=== PATIENT | male | born 1955 | race Caucasian/White ===

== ENCOUNTER → 2020-04-10 | Day surgery (SDC) | payer BC ==
[2020-04-07 15:56] VITALS: BMI 26.9
[~2020-04-10] MED LIST: LACTATED RINGERS 1,000 ML IV SCH; LIDOCAINE 1% (10MG/ML) FOR IV START INTRADERMA PRN; PROPOFOL 10 MG/ML 20 ML VIAL IV ONE
[2020-04-10 10:33] VITALS: TEMP 97.8
--- NOTE | 2020-04-10 10:58 | P.GSHP ---
History of Present Illness H&P Date: 04/10/20 Chief Complaint: Screening colonoscopy This a 65-year-old male who presents today for screening colonoscopy. Patient denies any significant GI complaints. Past Medical History Past Medical History: Hyperlipidemia, Thyroid Disorder History of Any Multi-Drug Resistant Organisms: None Reported Past Surgical History: Orthopedic Surgery Additional Past Surgical History / Comment(s): rt shoulder sx. colonoscopy Past Anesthesia/Blood Transfusion Reactions: No Reported Reaction Smoking Status: Former smoker - Past Family History Mother Family Medical History: No Reported History Medications and Allergies Home Medications Medication Instructions Recorded Confirmed Type Levothyroxine. Dose Unknown 1 tablet PO DAILY 04/07/20 04/10/20 History Simvastatin [Zocor] 20 mg PO DAILY 04/07/20 04/10/20 History Allergies Allergy/AdvReac Type Severity Reaction Status Date / Time No Known Allergies Allergy Verified 04/10/20 10:31 Surgical - Exam Vital Signs Temp Pulse Resp BP Pulse Ox 97.8 F 89 16 126/85 97 04/10/20 10:23 04/10/20 10:23 04/10/20 10:23 04/10/20 10:23 04/10/20 10:23 - General well developed, well nourished, no distress - Eyes PERRL - ENT normal pinna - Neck no masses - Respiratory normal expansion - Cardiovascular Rhythm: regular - Abdomen Abdomen: soft, non tender Assessment and Plan Assessment: We'll perform screening colonoscopy
--- NOTE | 2020-04-10 11:14 | P.OP ---
Date of Procedure: 04/10/20 Preoperative Diagnosis: Screening colonoscopy Postoperative Diagnosis: Normal colonoscopy Procedure(s) Performed: Colonoscopy Anesthesia: MAC Surgeon: Sasmon Modi Pathology: none sent Condition: stable Disposition: PACU Description of Procedure: PROCEDURE: The patient was placed on the endoscopy table in the lateral position. Digital rectal examination was performed which revealed no abnormalities. The prostate was symmetrical without nodules. Flexible colonoscope was then placed in the patient's anus and passed throughout the entire colon. The ileocecal valve was visualized. The cecum, ascending, transverse, descending and sigmoid colon were normal. The rectum was normal as well. There were no masses, polyps or diverticula noted in the entire colon. SUMMARY OF FINDINGS: Normal colonoscopy.
[2020-04-10 11:18] VITALS: RESP 17
[2020-04-10 11:24] VITALS: BP 95/70; PULSE 79
== END | disposition home or self-care (01) ==
LOC: ORWHC2ENDO 09:59
PROVIDERS: ATTEND Surgery
DX: Z12.11 Encounter for screening for malignant neoplasm of colon (principal); E78.5 Hyperlipidemia, unspecified; E07.9 Disorder of thyroid, unspecified; Z98.890 Other specified postprocedural states; Z87.891 Personal history of nicotine dependence; Z79.890 Hormone replacement therapy; Z79.899 Other long term (current) drug therapy
CPT/HCPCS: J2704; G0121